=== PATIENT | female | born 1990 | race Caucasian/White ===

== ENCOUNTER 2018-01-02 14:40 | Emergency (ER) | payer MEDICAID ==
[2018-01-02] MEDS ORDERED: ASPIRIN 81 MG TABLET, CHEWABLE PO ONE (15:51)
--- NOTE | 2018-01-02 15:52 | ER Document Report ---
ED Medical Screen (RME) - General TRAVEL OUTSIDE OF THE [place] IN LAST 30 DAYS: No <EDIE BELLA - Last Filed: 01/02/18 15:52> <ALONSO RAMAN - Last Filed: 01/02/18 18:01> - General Chief Complaint: Chest Pain Stated Complaint: CHEST HEAVINESS,HEART RATE ISSUE Time Seen by Provider: 01/02/18 15:51 Notes: 27 years old female presents today with chest heaviness chest tightness for the last few days. No nausea vomiting palpitation or diaphoresis Morbidly obese (EDIE BELLA) - Related Data Allergies/Adverse Reactions: No Known Allergies Allergy (Unverified 01/02/18 14:44) Past Medical History - Social History Chew tobacco use (# tins/day): No Frequency of alcohol use: Rare Drug Abuse: None Endocrine Medical History: Reports: Hx Diabetes Mellitus Type 2 - gestational only Renal/ Medical History: Denies: Hx Peritoneal Dialysis Past Surgical History: Reports: Hx Section - 1 <EDIE BELLA - Last Filed: 01/02/18 15:52> - Vital signs Vitals: Temp Pulse Resp BP Pulse Ox 98.5 F 89 16 140/87 H 98 01/02/18 15:09 01/02/18 15:09 01/02/18 15:09 01/02/18 15:09 01/02/18 15:09 Course - Laboratory Result Diagrams: 01/02/18 16:03 01/02/18 16:03 <ALONSO RAMAN - Last Filed: 01/02/18 18:01> - Vital Signs Vital signs: Temp Pulse Resp BP Pulse Ox 98.5 F 89 16 140/87 H 98 01/02/18 15:09 01/02/18 15:09 01/02/18 15:09 01/02/18 15:09 01/02/18 15:09 Doctor's Discharge <EDIE BELLA - Last Filed: 01/02/18 15:52> <ALONSO RAMAN - Last Filed: 01/02/18 18:01> - Discharge Clinical Impression: Palpitations Condition: Stable Disposition: HOME, SELF-CARE Instructions: Palpitations (Irregular or Rapid Heartrate) ([facility]) Additional Instructions: Please return to the emergency department if you have any worsening, or concern of your symptoms. Please return to the emergency department if you develop chest pain, difficulty breathing, severe abdominal pain, or ongoing vomiting. Please follow-up with your primary care physician in 2-3 days and any other recommended physicians. If prescribed, take all medications as directed. If you have any questions or concerns do not hesitate to return the emergency department for evaluation. Referrals: CASSIE NGUYEN MD [ACTIVE STAFF] - Follow up tomorrow (or your primary care. )
[2018-01-02 16:24] LABS: ABSOLUTE EOSINOPHILS # (AUTO) 0.1 10^3/uL (0.0-0.6); ABSOLUTE LYMPHOCYTES (AUTO) 2.2 10^3/uL (0.5-4.7); ABSOLUTE MONOCYTES (AUTO) 0.4 10^3/uL (0.1-1.4); ABSOLUTE NEUT (AUTO) 5.9 10^3/uL (1.7-8.2); BASOPHILS % (AUTO) 0.5 % (0-2); EOSINOPHILS % (AUTO) 1.4 % (0-6); HEMATOCRIT 39.1 % (36.0-47.0); HEMOGLOBIN 13.5 g/dL (12.0-15.5); MEAN CORPUSCULAR HEMOGLOBIN 30.9 pg (27.0-33.4); MEAN CORPUSCULAR HGB CONC 34.5 g/dL (32.0-36.0); MEAN CORPUSCULAR VOLUME 89 fl (80-97); PLATELET COUNT 280 10^3/uL (150-450); RED BLOOD COUNT 4.38 10^6/uL (3.72-5.28); SEGMENTED NEUTROPHILS % (AUTO) 68.1 % (42-78); TOTAL CELLS COUNTED % (AUTO) 100 %; WHITE BLOOD COUNT 8.6 10^3/uL (4.0-10.5)
[2018-01-02 16:44] LABS: ALANINE AMINOTRANSFERASE 23 U/L (9-52); ALBUMIN 4.2 g/dL (3.5-5.0); ALKALINE PHOSPHATASE 70 U/L (38-126); ANION GAP 10 (5-19); ASPARTATE AMINO TRANSFERASE 16 U/L (14-36); BILIRUBIN,DIRECT 0.4 mg/dL (0.0-0.4); BILIRUBIN,TOTAL 0.4 mg/dL (0.2-1.3); BLOOD UREA NITROGEN 11 mg/dL (7-20); CALCIUM 9.5 mg/dL (8.4-10.2); CARBON DIOXIDE 27 mmol/L (22-30); CHLORIDE 105 mmol/L (98-107); CREATINE KINASE 55 U/L (30-135); GLUCOSE 79 mg/dL (75-110); POTASSIUM 4.3 mmol/L (3.6-5.0); SODIUM 141.5 mmol/L (137-145); TOTAL PROTEIN 7.6 g/dL (6.3-8.2)
[2018-01-02 16:55] LABS: CREATINE KINASE MB 0.23 ng/mL (<4.55); TROPONIN I < 0.012 ng/mL
[2018-01-02] MEDS ORDERED: NORMAL SALINE 1000 ML 1,000 ML IV ONE (16:57)
--- NOTE | 2018-01-02 17:33 | RADIOLOGY REPORT (SQ) ---
EXAM DESCRIPTION: CHEST 2 VIEWS COMPLETED DATE/TIME: 01/02/2018 5:14 pm REASON FOR STUDY: chest pressure COMPARISON: None. TECHNIQUE: Frontal and lateral radiographic views of the chest acquired. NUMBER OF VIEWS: Two view. LIMITATIONS: None. FINDINGS: LUNGS AND PLEURA: No pneumothorax. No consolidation or pleural effusion. MEDIASTINUM AND HILAR STRUCTURES: Stable. HEART AND VASCULAR STRUCTURES: Stable. BONES: No acute findings. HARDWARE: None in the chest. OTHER: No other significant finding. IMPRESSION: NO ACUTE FINDINGS. TECHNICAL DOCUMENTATION: JOB ID: [id number] [id number] 2010 [employer] All Rights Reserved Reading location - IP/workstation name: [email or web address]
[2018-01-02 18:20] VITALS: BP 127/82
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
--- NOTE | 2018-01-03 20:53 | EKG REPORT ---
SEVERITY:- NORMAL ECG - SINUS RHYTHM : Confirmed by: Juanita Perez MD 03-Jan-2018 20:52:26
== END 2018-01-02 18:18 | disposition home or self-care (01) ==
LOC: ER 14:40
DX: R00.2 Palpitations (principal); R06.02 Shortness of breath
CPT/HCPCS: 36415; 71046; 80053; 82550; 82553; 84484; 84703; 85025; 93005; 93010; 99285